=== PATIENT | male | born 2000 | race Caucasian/White ===

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

== ENCOUNTER 2020-01-01 08:17 | Emergency (ER) | payer OTHER ==
[~2020-01-01] VITALS: Ht 175.3 cm; Wt 109.0 kg
[~2020-01-01 08:17] MED LIST: AMOX500C PO; TRAM50TA PO
[2020-01-01 08:27] VITALS: BP 163/90
[2020-01-01] MEDS ORDERED: DIPH25CA58 PO (08:44)
--- NOTE | 2020-01-01 08:44 | PHYS DOC ---
Past Medical History Past Medical History: Anxiety, Depression Past Surgical History: Tonsillectomy, Other Additional Past Surgical Histo: INGUINAL HERNIA. Smoking Status: Current Every Day Smoker Alcohol Use: Occasionally Drug Use: Marijuana General Adult EDM: Chief Complaint: OTHER COMPLAINTS HPI: HPI: The history was obtained from the patient. Patient is a 19-year-old male with no reported PMH who presents with a chief complaint of swollen upper lip. Patient states he woke up 3 hours prior to arrival and noticed a slightly swollen upper lip. He denies any new exposures including foods, detergents, clothing, or pets. He states that he does have an allergy to aspirin but denies ingesting this recently. He states that his mom is a nurse and thinks that he may have experienced a spider bite. He denies any history of spider bite. He does note that he has 2 pimples on his upper lip that he tried to express fluid from prior to arrival. He is unsure whether this made the swelling worse or not. He denies any difficulty breathing or swallowing. Denies any changes to his voice. He denies any trismus. States that the swelling is slightly improved since it began. Has not tried any medicine at home. Denies any overlying skin changes. Denies fevers. Denies vomiting. Denies any rashes. Denies any family history of angioedema. Does not take daily medications. He does note that he started using a new vape 2 days ago. No other complaints. Review of Systems: Review of Systems: Constitutional: Denies fever or chills. [] Eyes: Denies change in visual acuity. [] HENT: Positive for swollen upper lip Respiratory: Denies cough or shortness of breath. [] Cardiovascular: Denies chest pain or edema. [] GI: Denies abdominal pain, nausea, vomiting, bloody stools or diarrhea. [] : Denies dysuria. [] Musculoskeletal: Denies back pain or joint pain. [] Integument: Denies rash. [] Neurologic: Denies headache, focal weakness or sensory changes. [] Endocrine: Denies polyuria or polydipsia. [] Lymphatic: Denies swollen glands. [] Psychiatric: Denies depression or anxiety. [] Heart Score: Risk Factors: Risk Factors: DM, Current or recent (<one month) smoker, HTN, HLP, family history of CAD, obesity. Risk Scores: Score 0 - 3: 2.5% MACE over next 6 weeks - Discharge Home Score 4 - 6: 20.3% MACE over next 6 weeks - Admit for Clinical Observation Score 7 - 10: 72.7% MACE over next 6 weeks - Early Invasive Strategies Allergies: Allergies: Allergies Coded Allergies Type Severity Reaction Last Updated Verified naproxen Allergy Intermediate SWELLING TO FACE 09/19/19 Yes Physical Exam: PE: Constitutional: Well developed, well nourished, no acute distress, non-toxic appearance. [] HENT: Minimally swollen right upper lip. 2 pimples noted on the upper lip. No tongue swelling. No trismus. Normal phonation. Eyes: PERRLA, EOMI, conjunctiva normal, no discharge. [] Neck: Normal range of motion, no tenderness, supple, no stridor. [] Cardiovascular:Heart rate regular rhythm, no murmur [] Lungs & Thorax: Bilateral breath sounds clear to auscultation [] Abdomen: soft, no tenderness, no masses, no pulsatile masses. [] Skin: Warm, dry, no erythema, no rash. [] Back: No tenderness, no CVA tenderness. [] Extremities: No tenderness, no cyanosis, no clubbing, ROM intact, no edema. [] Neurologic: Alert and oriented X 3, normal motor function, normal sensory function, no focal deficits noted. [] Psychologic: Affect normal, judgement normal, mood normal. [] Current Patient Data: Vital Signs: Vital Signs Date Time Temp Pulse Resp B/P (MAP) Pulse Ox O2 Delivery O2 Flow Rate FiO2 01/01/20 08:27 98.2 87 18 163/90 (114) 98 Room Air 98.2 EKG: EKG: [] Radiology/Procedures: Radiology/Procedures: [] Course & Med Decision Making: Course & Med Decision Making Pertinent Labs and Imaging studies reviewed. (See chart for details) Patient is a well-appearing 19-year-old male who presents with chief complaint of slightly swollen upper lip. He is unsure the exact cause of this. Vital signs notable for an elevated blood pressure. Physical exam grossly unremarkable. No signs of impending respiratory issues. See physical exam above. This could be related to his new vape device. Could be related to swelling secondary to his pimples in the area. At this time no signs of respiratory compromise or impending anaphylaxis. Antibiotics were deferred as there are no signs of infection. Given patient's benign appearance I do feel he is appropriate for discharge home with outpatient management. He was encouraged to use Benadryl Pepcid as needed. He was given strict return precautions to which she expressed understanding. He is agreeable to this plan. I did encourage him to stop using his new vape. I did notify the patient of h is elevated blood pressure. Given this 1 time elevated reading antihypertensives will be deferred. I encouraged him to follow-up with his primary care physician regarding this. Patient is agreeable to discharge home and close monitoring. Dragon Disclaimer: [employer] Disclaimer: This electronic medical record was generated, in whole or in part, using a voice recognition dictation system. Departure Departure Disposition: 01 HOME, SELF-CARE Condition: GOOD Referrals: NO PCP (PCP) Additional Instructions: Please return the emergency department immediately should your upper lip swelling return or worsen. [facility] [address] [place] [address] [facility] [address] [place] [address] [facility] [address] [facility] [place] [address] [facility] [address] [place] [address] [facility] [address] [place] [address] [facility] [address] [place] [address] [facility] [address] [place] [address] [facility] [address] [place] [address] [facility] [address] [place] [address] [facility] [address] [place] [address] Scripts Diphenhydramine Hcl (BENADRYL) 25 Mg Capsule 25 MG PO TID PRN for ALLERGIES for 3 Days, #9 CAP Prov: ISAMAR WEBB DO 01/01/20 Justicifation of Admission Dx: Justifications for Admission: Justification of Admission Dx: N/A ISAMAR WEBB DO Jan 01, 2020 08:44
== END 2020-01-01 08:52 | disposition home or self-care (01) ==
LOC: ER 08:17
DX: R60.0 Localized edema (principal); F41.9 Anxiety disorder, unspecified; F32.9 Major depressive disorder, single episode, unspecified; F17.200 Nicotine dependence, unspecified, uncomplicated; F12.90 Cannabis use, unspecified, uncomplicated; Z90.89 Acquired absence of other organs; Z98.890 Other specified postprocedural states; Z88.8 Allergy status to other drugs, medicaments and biological substances
CPT/HCPCS: 99282

== ENCOUNTER 2020-04-13 10:17 | Emergency (ER) | payer OTHER ==
[~2020-04-13] VITALS: Ht 172.7 cm; Wt 113.6 kg
[~2020-04-13 10:17] MED LIST changes: +DIPH25CA58 PO
--- NOTE | 2020-04-13 10:58 | RAD ---
EXAM: CHEST AP ONLY INDICATION: Reason: SOA, COUGH / Spl. Instructions: / History: . TECHNIQUE: Single view COMPARISON: None FINDINGS: The heart size is upper normal. The great vessels appear unremarkable. There is no hilar or mediastinal mass. The lungs are clear. There is no pleural effusion or pneumothorax. There are no significant osseous abnormalities. IMPRESSION: No active cardiopulmonary disease. Electronically signed by: Dalila Lewis MD (04/13/2020 10:55 AM) [id number]
[2020-04-13 11:03] VITALS: BP 141/84
[2020-04-13 11:43] LABS: INFLUENZA A PATIENT NEGATIVE (NEGATIVE); INFLUENZA B PATIENT NEGATIVE (NEGATIVE)
[2020-04-13] MEDS ORDERED: AZIT250T PO (11:49)
--- NOTE | 2020-04-13 11:49 | PHYS DOC ---
Past Medical History Past Medical History: Anxiety, Depression Past Surgical History: Tonsillectomy, Other Additional Past Surgical Histo: INGUINAL HERNIA. Smoking Status: Current Every Day Smoker Alcohol Use: Occasionally Drug Use: Marijuana General Adult EDM: Chief Complaint: SORE THROAT HPI: HPI: Patient is a 19 year old male who presented to ER for evaluation of sore throat, nasal congestion and cough for 2 days. Patient is not sure if he been exposed to anybody who tested positive COVID-19. Patient denies any fever, no abdominal pain, no nausea vomiting. Review of Systems: Review of Systems: Constitutional: Denies fever or chills. [] Eyes: Denies change in visual acuity. [] HENT: POSITIVE nasal congestion or sore throat. [] Respiratory: pOSITIVE FOR cough or shortness of breath. [] Cardiovascular: Denies chest pain or edema. [] GI: Denies abdominal pain, nausea, vomiting, bloody stools or diarrhea. [] : Denies dysuria. [] Musculoskeletal: Denies back pain or joint pain. [] Integument: Denies rash. [] Neurologic: Denies headache, focal weakness or sensory changes. [] Endocrine: Denies polyuria or polydipsia. [] Lymphatic: Denies swollen glands. [] Psychiatric: Denies depression or anxiety. [] Heart Score: Risk Factors: Risk Factors: DM, Current or recent (<one month) smoker, HTN, HLP, family history of CAD, obesity. Risk Scores: Score 0 - 3: 2.5% MACE over next 6 weeks - Discharge Home Score 4 - 6: 20.3% MACE over next 6 weeks - Admit for Clinical Observation Score 7 - 10: 72.7% MACE over next 6 weeks - Early Invasive Strategies Allergies: Allergies: Allergies Coded Allergies Type Severity Reaction Last Updated Verified naproxen Allergy Intermediate SWELLING TO FACE 09/19/19 Yes Physical Exam: PE: Constitutional: Well developed, well nourished, no acute distress, non-toxic appearance. [] HENT: Normocephalic, atraumatic, bilateral external ears normal, oropharynx moist AND ERYTHEMA, no oral exudates, nose normal. [] Eyes: PERRLA, EOMI, conjunctiva normal, no discharge. [] Neck: Normal range of motion, no tenderness, supple, no stridor. [] Cardiovascular:Heart rate regular rhythm, no murmur [] Lungs & Thorax: Bilateral breath sounds clear to auscultation [] Abdomen: Bowel sounds normal, soft, no tenderness, no masses, no pulsatile masses. [] Skin: Warm, dry, no erythema, no rash. [] Back: No tenderness, no CVA tenderness. [] Extremities: No tenderness, no cyanosis, no clubbing, ROM intact, no edema. [] Neurologic: Alert and oriented X 3, normal motor function, normal sensory function, no focal deficits noted. [] Psychologic: Affect normal, judgement normal, mood normal. [] Current Patient Data: Labs: Laboratory Tests Test 04/13/20 10:25 04/13/20 10:29 Influenza Type A Antigen Negative (NEGATIVE) Influenza Type B Antigen Negative (NEGATIVE) Group A Streptococcus Rapid Negative (NEGATIVE) Vital Signs: Vital Signs Date Time Temp Pulse Resp B/P (MAP) Pulse Ox O2 Delivery O2 Flow Rate FiO2 04/13/20 11:03 90 141/84 (103) 97 Room Air 04/13/20 10:35 98.2 18 98.2 EKG: EKG: [] Radiology/Procedures: Radiology/Procedures: [facility] [address] [place], [place] [id number] IMAGING REPORT Signed PATIENT: LITO FRANCO BACCOUNT: [id number] : 2000 LOCATION: ER AGE: 19 SEX: M EXAM STATUS: REG ER ORD. PHYSICIAN: STEVEN DASILVA DO REASON: SOA, COUGH PROCEDURE: CHEST AP ONLY EXAM: CHEST AP ONLY INDICATION: Reason: SOA, COUGH / Spl. Instructions: / History: . TECHNIQUE: Single view COMPARISON: None FINDINGS: The heart size is upper normal. The great vessels appear unremarkable. There is no hilar or mediastinal mass. The lungs are clear. There is no pleural effusion or pneumothorax. There are no significant osseous abnormalities. IMPRESSION: No active cardiopulmonary disease. Electronically signed by: Stephon Lewis MD (04/13/2020 10:55 AM) [id number] DICTATED and SIGNED BY: STEPHON LEWIS MD DATE: 04/13/20 1055 Course & Med Decision Making: Course & Med Decision Making Pertinent Labs and Imaging studies reviewed. (See chart for details) [] Thania Disclaimer: Thania Disclaimer: This electronic medical record was generated, in whole or in part, using a voice recognition dictation system. Departure Departure Impression: Primary Impression: Acute pharyngitis Additional Impression: Person under investigation for COVID-19 Disposition: 01 DC HOME SELF CARE/HOMELESS Condition: STABLE Referrals: NO PCP (PCP) Patient Instructions: Viral and Bacterial Pharyngitis Additional Instructions: Thank you for visiting our Emergency Department. We appreciate you trusting us with your care. If any additional problems come up don't hesitate to return to visit us. Please follow up with your primary care provider so they can plan additional care if needed and know about the problem that you had. If symptoms worsen come back to the Emergency Department. Any concerning symptoms that start such as chest pain, shortness of air, weakness or numbness on one side of the body, running high fevers or any other concerning symptoms return to the ER. Scripts Azithromycin (ZITHROMAX) 250 Mg Tablet 1 PKG PO UD, #6 TAB Prov: STEVEN DASILVA DO 04/13/20 STEVEN DASILVA DO Apr 13, 2020 11:49
--- NOTE | 2020-04-15 09:29 | NUR ---
IP: Attempted to call COVID results. No answer. Left a voicemail to return the call.
--- NOTE | 2020-04-15 09:58 | NUR ---
IP: Pt returned the call. Informed pt of negative COVID test. Pt verbalized understanding.
== END 2020-04-13 12:01 | disposition home or self-care (01) ==
LOC: ER 10:17
DX: J02.9 Acute pharyngitis, unspecified (principal); Z20.828 Contact with and (suspected) exposure to other viral communicable diseases; R09.81 Nasal congestion; R05 Cough; F17.200 Nicotine dependence, unspecified, uncomplicated; Z88.5 Allergy status to narcotic agent
CPT/HCPCS: 36415; 71045; 87070; 87804; 87880; 99284; C9803; U0003